=== PATIENT | male | born 1970 | race Caucasian/White ===

== ENCOUNTER 2024-04-08 06:07 | Emergency (ER) | payer MEDICARE, SELFPAY ==
[2024-04-08 06:11] VITALS: BP 170/89; PULSE 65; RESP 16; TEMP 37.2; O2SAT 97; BMI 25.8
--- NOTE | 2024-04-08 06:19 | CTR_ITS ---
PROCEDURE INFORMATION: Exam: CT Abdomen And Pelvis Without Contrast Exam date and time: 04/08/2024 6:50 AM Age: 53 years old Clinical indication: Abdominal pain; Flank; Left; Additional info: Flank pain TECHNIQUE: Imaging protocol: Computed tomography of the abdomen and pelvis without contrast. Radiation optimization: All CT scans at this facility use at least one of these dose optimization techniques: automated exposure control; mA and/or kV adjustment per patient size (includes targeted exams where dose is matched to clinical indication); or iterative reconstruction. COMPARISON: No relevant prior studies available. RADIATION DOSE METRICS: Total DLP (mGy-cm): 442.82 FINDINGS: Liver: Normal. No mass. Gallbladder and biliary ducts: Normal. No calcified stones. No ductal dilation. Pancreas: Normal. No ductal dilation. Spleen: Normal. No splenomegaly. Adrenal glands: Normal. No mass. Kidneys and ureters: Bilateral hydroureteronephrosis. Large calcified stone in the proximal right ureter measures 7 mm transverse by 7.5 mm longitudinal. Large calcified stone in the proximal left ureter measures 7 mm by 8 mm longitudinal. Multiple nonobstructing bilateral kidney stones. Bilateral perinephric stranding worse left than right. Stomach and bowel: Unremarkable. No obstruction. No mucosal thickening. Appendix: No evidence of appendicitis. Intraperitoneal space: Unremarkable. No free air. No significant fluid collection. Vasculature: Unremarkable. No abdominal aortic aneurysm. Lymph nodes: Unremarkable. No enlarged lymph nodes. Urinary bladder: Unremarkable as visualized. Reproductive: Unremarkable as visualized. Bones/joints: Unremarkable. No acute fracture. Soft tissues: Unremarkable. CT/CT kidney stone [id number] IMPRESSION: Bilateral renal obstruction secondary to large proximal ureteral stones.
--- NOTE | 2024-04-08 06:20 | ED_ITS ---
HPI - Abdominal Pain 2 General: Chief Complaint: Abdominal Pain Stated Complaint: abd pain Time Seen by Provider: 04/08/24 06:11 Source: patient Mode of arrival: ambulatory History of Present Illness: 53-year-old male presents emergency room with complaint of left flank pain with associated hematuria. Patient reports having had a case history of renal stones in the past. He has not had any intervention past them. He did say recently seen a urologist and advised to go to strain his urine and given him tamsulosin. He is continuing to have hematuria and reports low-grade fever. MD elicited complaint: abdominal pain Pertinent past history: kidney stones Onset (ago): day(s) Pain Consistency: constant Location: L flank Severity: severe Quality: sharp Radiation: suprapubic Exacerbating factors: nothing Relieving factors: nothing Associated Symptoms: Reports nausea, poor appetite and vomiting; Denies anorexia, belching, bloating, change in bowel habits, change in stool character, chills, coffee ground emesis, constipation, GI cramping, diarrhea, dyspepsia, dysuria, excessive flatus, fever(s), heartburn, hematochezia, hematuria, hematemesis, fecal incontinence, loose stools, melena and syncope Review of Systems 2 Const: Denies: fever(s) or chills Card: Denies: chest pain or syncope Resp: Denies: dyspnea GI: Reports: nausea and vomiting; Denies: abdominal pain, hematemesis, coffee ground emesis, heartburn, diarrhea, constipation, bloating, GI cramping, belching, excessive flatus, fecal incontinence, change in bowel habits, change in stool character, hematochezia or melena : Denies: dysuria, urinary frequency, urinary urgency or hematuria Musc: Denies: neck pain or back pain Skin/Breast: Denies: rash PFSH ED 2 PFSH: Medical History (Updated 04/08/24 @ 10:09 by Julien Bond DO) Diverticulitis Cervicalgia Hyperlipidemia Diabetes GERD (gastroesophageal reflux disease) Surgical History H/O sinus surgery H/O circumcision H/O colonoscopy several yrs ago H/O esophagogastroduodenoscopy Family History Father CAD (coronary artery disease) Mother Cancer leukemia Daughter Cancer breast Denies family history of Anesthesia complication Bleeding disorder Social History Smoking and tobacco/nicotine status: never used tobacco/nicotine Alcohol intake: never Substance/Drug Use: never Household members: spouse Marital status: Current occupational status: disabled Physical Exam 2 Const: GENERAL APPEARANCE: cooperative and comfortable O RIENTATION/CONSCIOUSNESS: Yes awake, Yes oriented to person, Yes oriented to place and Yes oriented to time HENMT: COMMON NORMALS: normocephalic, atraumatic and hearing grossly normal bilaterally HEAD & SCALP: normocephalic and atraumatic Resp: COMMON NORMALS: normal respiratory effort, No retractions, No use of accessory muscles and clear to auscultation bilaterally AUSCULTATION: clear to auscultation bilaterally Cardio: COMMON NORMALS: regular rate, regular rhythm and No murmurs present (Cardio) RATE: regular rate RHYTHM: regular rhythm GI: COMMON NORMALS: Soft to palpation and No hepatosplenomegaly present A USCULTATION: Yes normoactive bowel sounds PALPATION: Yes Soft to palpation, No Tenderness to palpation present (GI), No Guarding due to palpation present (GI) and Yes No hepatosplenomegaly present : BLADDER/KIDNEY EXAM: Yes CVA tenderness Back/Pelvis: GENERAL BACK: Yes CVA tenderness CVA tenderness: left Extremity: COMMON NORMALS: normal to inspection, capillary refill normal, no clubbing, cyanosis or edema, no calf tenderness and no pedal edema Neuro: SENSORIUM/ORIENTATION: Yes oriented to person, Yes oriented to place and Yes oriented to time Skin: COMMON NORMALS: no rashes or lesions noted GENERAL SKIN EXAM: no rashes or lesions noted Course 2 Vital Signs: Vital signs: Vital Signs Temperature 99.0 F 04/08/24 06:11 Pulse Rate 71 04/08/24 07:39 Respiratory Rate 18 04/08/24 07:07 Blood Pressure 149/85 04/08/24 09:40 Pulse Oximetry 99 04/08/24 09:40 Oxygen Delivery Me thod Room Air 04/08/24 07:39 MDM - Abdominal Pain Medical Decision Making Patient has bilateral proximal obstructing ureteral stones are actually quite large. He has seen Dr. Walton in the past we discussed different options since we do not have urology here. He would like to see Dr. Walton again since it would probably be the most convenient for him. I did was able to contact Dr. Walton he agreed to take the patient as an admission for himself. He asked that we transfer the patient ER to ER where he would see the patient and admit him. Patient cultured and given IV antibiotics initially. Medical Records I reviewed the patient's medical records. Lab Data I reviewed the patient's lab results. 04/08/24 06:17 04/08/24 06:17 Labs/Radiology: Radiology Impressions Abdomen/Pelvis CT 04/08/24 06:19 IMPRESSION: Bilateral renal obstruction secondary to large proximal ureteral stones. Laboratory Results WBC 14.26 10^3/uL (3.29-11.43) H 04/08/24 06:17 RBC 4.71 10^6/uL (3.85-5.65) 04/08/24 06:17 Hgb 14.20 g/dL (11.27-16.99) 04/08/24 06:17 Hct 42.8 % (37-53) 04/08/24 06:17 MCV 90.9 fl (82-101) 04/08/24 06:17 MCH 30.1 pg (27-33) 04/08/24 06:17 MCHC 33.2 g/dL (30-55) 04/08/24 06:17 RDW 13.1 % (12.1-15.1) 04/08/24 06:17 Plt Count 223 10^3/cmm (157-399) 04/08/24 06:17 MPV 9.6 fL (7.4-10.4) 04/08/24 06:17 Neut % (Auto) 74.9 % 04/08/24 06:17 Lymph % (Auto) 15.0 % 04/08/24 06:17 Miner % (Auto) 8.6 % 04/08/24 06:17 Eos % (Auto) 1.0 % 04/08/24 06:17 Baso % (Auto) 0.2 % 04/08/24 06:17 Neut # (Auto) 10.68 10^3/uL (1.8-7.7) H 04/08/24 06:17 Lymph # (Auto) 2.1 10^3/uL (0.8-4.8) 04/08/24 06:17 Miner # (Auto) 1.2 10^3/uL (0.2-0.9) H 04/08/24 06:17 Eos # (Auto) 0.1 10^3/uL (0.0-0.8) 04/08/24 06:17 Baso # (Auto) 0.0 10^3/uL (0.0-0.1) 04/08/24 06:17 Nucleated RBC % (auto) 0 % 04/08/24 06:17 Nucleated RBCs # 0.0 /100WBC 04/08/24 06:17 Sodium 137 mmol/L (136-145) 04/08/24 06:17 Potassium 3.9 mmol/L (3.5-5.1) 04/08/24 06:17 Chloride 102 mmol/L (98-107) 04/08/24 06:17 Carbon Dioxide 24 mmol/L (22-29) 04/08/24 06:17 Anion Gap 14.9 (5-19) 04/08/24 06:17 BUN 19 mg/dL (6-20) 04/08/24 06:17 Creatinine 1.4 mg/dL (0.7-1.2) H 04/08/24 06:17 GFR Calculation 52.8 mL/min (90-130) L 04/08/24 06:17 Glucose 125 mg/dL (65-115) H 04/08/24 06:17 Calculated Osmolality 288 mOsm/kg (285-295) 04/08/24 06:17 Lactic Acid 0.8 mmol/L (0.5-2.2) 04/08/24 06:17 Calcium 9.3 mg/dL (8.5-10.5) 04/08/24 06:17 Total Bilirubin 0.6 mg/dL (0.15-1.2) 04/08/24 06:17 AST 12 U/L (0-40) 04/08/24 06:17 ALT < 5 U/L (0-41) 04/08/24 06:17 Alkaline Phosphatase 85 U/L (40-130) 04/08/24 06:17 Total Protein 7.7 g/dL (6.6-8.7) 04/08/24 06:17 Albumin 4.2 g/dL (3.5-5.2) 04/08/24 06:17 Globulin 3.5 g/dL (1.3-4.6) 04/08/24 06:17 Lipase 58 U/L (13-60) 04/08/24 06:17 Urine Color Yellow (Yellow) 04/08/24 07:04 Urine Appearance Slightly cloudy (CLEAR) 04/08/24 07:04 Urine pH 7 (5-7) 04/08/24 07:04 Ur Specific [place] 1.010 (1.005-1.030) 04/08/24 07:04 Urine Protein Trace (Negative) 04/08/24 07:04 Urine Glucose (UA) Norm (Normal) 04/08/24 07:04 Urine Ketones Negative (Negative) 04/08/24 07:04 Urine Blood 3+ (Negative) H 04/08/24 07:04 Urine Nitrate Negative (Negative) 04/08/24 07:04 Urine Bilirubin Neg (Negative) 04/08/24 07:04 Urine Urobilinogen Neg mg/dL (Negative) 04/08/24 07:04 Ur Leukocyte Esterase 1+ (Negative) H 04/08/24 07:04 Urine RBC >100 /hpf (0-2) H 04/08/24 07:04 Urine WBC 15-25 /hpf (0-5) H 04/08/24 07:04 Ur Squamous Epith Cells 0-4 /hpf (0-5) H 04/08/24 07:04 Amorphous Sediment Not Reportable 04/08/24 07:04 Urine Bacteria Trace /hpf (NONE) 04/08/24 07:04 Urine Mucus 1+ /hpf 04/08/24 07:04 All radiology interpretation(s) finalized by discharge Discharge Plan Discharge Patient Disposition: Xfer Short-Term Hosp Clinical Impression: Bilateral nephrolithiasis, Cystitis Condition: Stable Referrals: Maribel Narayanan APN [Primary Care Provider] - Walter Couch MD [Family Provider] - Coding Level of Care Code ED [employer] 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
[2024-04-08 06:28] LABS: Basophils % 0.2 %; Eosinophils # 0.1 10^3/uL (0.0-0.8); Hematocrit 42.8 % (37-53); Lymphocytes # 2.1 10^3/uL (0.8-4.8); Mean Corpuscular HGB Conc 33.2 g/dL (30-55); Mean Corpuscular Hemoglobin 30.1 pg (27-33); Mean Corpuscular Volume 90.9 fl (82-101); Mean Platelet Volume 9.6 fL (7.4-10.4); Monocytes # 1.2 10^3/uL (0.2-0.9); Monocytes % 8.6 %; Neutrophils # 10.68 10^3/uL (1.8-7.7); Neutrophils % 74.9 %; Nucleated Red Blood Cells % 0 %; Platelet Count 223 10^3/cmm (157-399); Red Blood Count 4.71 10^6/uL (3.85-5.65); Red Cell Distribution Width 13.1 % (12.1-15.1); White Blood Count 14.26 10^3/uL (3.29-11.43)
[2024-04-08 06:36] VITALS: RESP 18; O2SAT 100
[2024-04-08] MEDS: morphine 4 mg/mL SDV 1 mL IVP (06:36)
[2024-04-08] MEDS: ondansetron 2 mg/ML SDV 2 mL 4 MG IVP (06:36)
[2024-04-08] MEDS: sodium chloride 0.9% 1,000 ML 999 ML IV (06:36)
[2024-04-08 06:40] VITALS: BP 143/89; PULSE 73; O2SAT 98
[2024-04-08 06:49] LABS: Alanine Aminotransferase < 5 U/L (0-41); Albumin Level 4.2 g/dL (3.5-5.2); Alkaline Phosphatase 85 U/L (40-130); Anion Gap 14.9 (5-19); Aspartate Amino Transferase 12 U/L (0-40); Blood Urea Nitrogen 19 mg/dL (6-20); Calcium 9.3 mg/dL (8.5-10.5); Carbon Dioxide 24 mmol/L (22-29); Chloride 102 mmol/L (98-107); Creatinine Clr Calc Pharmacy 59.3786; Globulin 3.5 g/dL (1.3-4.6); Glomerular Filtration Rate 52.8 mL/min (90-130); Glucose 125 mg/dL (65-115); Lipase 58 U/L (13-60); Osmolality Calculated 288 mOsm/kg (285-295); Potassium 3.9 mmol/L (3.5-5.1); Sodium 137 mmol/L (136-145); Total Bilirubin 0.6 mg/dL (0.15-1.2); Total Protein 7.7 g/dL (6.6-8.7)
[2024-04-08 06:50] LABS: Lactic Sepsis W/Reflex 0.8 mmol/L (0.5-2.2)
[2024-04-08 07:07] VITALS: BP 156/106; PULSE 61; RESP 18; O2SAT 100
[2024-04-08 07:24] LABS: Bilirubin Urine Neg (Negative); Blood Urine 3+ (Negative); Glucose Urine UA Norm (Normal); Ketones Urine Negative (Negative); Nitrate Urine Negative (Negative); Protein Urine Trace (Negative); Urine Appearance Slightly Cloudy (CLEAR); Urine Color Yellow (Yellow); Urobilinogen Urine Neg (Negative); pH Urine 7 (5-7)
[2024-04-08 07:25] LABS: Add Urine Microscopic? YES; Leukocyte Esterase Urine 1+ (Negative)
[2024-04-08 07:26] LABS: RBC Urine >100 /hpf (0-2); WBC Urine 15-25 /hpf (0-5)
[2024-04-08 07:27] LABS: Add Urine Culture? Yes; Bacteria Urine TRACE /hpf; Mucus Urine 1+ /hpf; Squamous Epithelial Cell Urine 0-4 /hpf (0-5)
[2024-04-08 07:39] VITALS: BP 148/85; PULSE 71; O2SAT 99
[2024-04-08] MEDS: cefTRIAXone 1,000 mg SDV 1000 MG IVP (08:06)
[2024-04-08] MEDS: water for injection-sterile SDV 10 mL IVP (09:11)
--- NOTE | 2024-04-08 09:17 | PC.NURSE ---
PT REFUSING AMBULANCE. PT STATES THAT HE DOES NOT WANT TO LEAVE HIS CAR HERE. PT EDUCATED ON USE OF MORPHINE AND DRIVING. PATIENT STATES THERE'S ALWAYS MORPHINE IN MY SYSTEM. IV REMOVED. PHONE CALL TO [facility] TO EXPECT POV.
[2024-04-08 09:40] VITALS: BP 149/85; O2SAT 99
== END 2024-04-08 09:41 | disposition short-term general hospital (02) ==
PROVIDERS: Emergency Provider Family Medicine; PCP Nurse Practitioner Family
DX: N20.0 Calculus of kidney (principal); Z87.442 Personal history of urinary calculi; N30.90 Cystitis, unspecified without hematuria; R10.9 Unspecified abdominal pain
CPT/HCPCS: 36415; 74176; 80053; 81001; 83605; 83690; 85025; 87040; 87086; 96361; 96374; 96375; 99285; J0696; J2270; J2405; J7030

== ENCOUNTER 2025-06-01 08:59 | Outpatient (CLI) | payer MEDICARE, SELFPAY ==
--- NOTE | 2025-06-01 09:07 | MR_ITS ---
WS: [id number] MRI LUMBAR SPINE NONCONTRAST TECHNIQUE: Sagittal T1, T2 and STIR imaging. Axial T1 and T2 imaging. CLINICAL INFORMATION: SPONDYLOSIS OF LUMBOSACRAL REGION W/O MYELOPATHY COMPARISON: 2016 FINDINGS: Mild lumbar curve. No acute compression. Slight retrolisthesis L3 on L4. 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 Slight effacement of the ventral thecal sac. Mild facet arthropathy. L2-L3: Mild annular bulging. Slight narrowing of the RIGHT greater than LEFT subarticular recess. Mild facet arthropathy. Foramen are patent. L3-L4: Slight retrolisthesis. Mild disc bulging with mild central canal stenosis. Impingement of traversing L4 nerve roots bilaterally. Mild facet arthropathy. Mild RIGHT greater than LEFT foraminal narrowing with a small RIGHT foraminal protrusion. L4-L5: Mild disc bulge with narrowing of the LEFT subarticular recess. Mild facet arthropathy. Mild LEFT foraminal narrowing. L5-S1: Mild disc bulging with impingement on the LEFT subarticular recess and traversing LEFT S1 nerve root. Moderate facet arthropathy. Mild to moderate LEFT foraminal narrowing. Visualized pelvic bony structures: Normal. Paravertebral soft tissues: Normal. MR/MR lumbar spine wo con* [id number] IMPRESSION: 1. Mild lumbar curve. No acute compression. No high-grade central canal stenos is. 2. Disc bulging L3-4 impinges the RIGHT subarticular recess and traversing RIG HT L4 nerve root. This is progressed compared to previous. RIGHT foraminal prot rusion at this level impinges the exiting RIGHT L3 nerve root proximally. 3. Disc bulging L4-5 with a tiny annular fissure impinges the traversing LEFT L5 nerve root in the subarticular recess. This is similar to previous. Mild LEF T foraminal narrowing at this level. 4. Disc bulging L5-S1 impinges the traversing LEFT S1 nerve root in the subart icular recess. This is similar to previous. LEFT foraminal protrusion at this l evel impinges the exiting LEFT L5 nerve root which appears slightly progressed.
== END 2025-06-01 09:00 | disposition home or self-care (01) ==
LOC: RAD 09:01
PROVIDERS: PCP Nurse Practitioner Family; Visit Provider Student in an Organized Health Care Education/Training Program
DX: M47.817 Spondylosis without myelopathy or radiculopathy, lumbosacral region (principal); M51.16 Intervertebral disc disorders with radiculopathy, lumbar region; M51.87 Other intervertebral disc disorders, lumbosacral region; M51.17 Intervertebral disc disorders with radiculopathy, lumbosacral region
CPT/HCPCS: 72148